=== PATIENT | female | born 1955 | race Caucasian/White ===

== ENCOUNTER 2021-03-08 10:48 | Emergency (ER) | payer MEDICARE, SELFPAY ==
[2021-03-08 10:57] VITALS: BP 106/57; PULSE 54; RESP 17; O2SAT 93; BMI 28.6
--- NOTE | 2021-03-08 11:10 | W.ED.GIBLEED ---
HPI - GI Bleed General: Chief complaint: GI Bleed Stated complaint: UPPER GI BLEED, SYNCOPAL EPISODE Time Seen by Provider: 03/08/21 10:56 History of Present Illness: HPI Narrative: Patient comes in after experiencing a syncopal episode and 2 episodes of vomiting blood. States that 3 days ago she had an upper GI scope with biopsies and polyp removal. States that she was started back on her blood thinner 2 days ago. She denies any abdominal pain, continued vomiting, nausea, fever. Associated symptoms: Reports nausea and vomiting; Denies abdominal pain, fever(s), headache(s) or rash Review of Systems Const: Denies: fever(s) or body aches Eyes: Denies: change in vision or blurry vision ENMT: Denies: throat pain or odynophagia Card: Denies: chest pain or palpitations Resp: Denies: dyspnea or productive cough GI: Reports: nausea, vomiting and hematemesis; Denies: abdominal pain : Denies: flank pain or dysuria Musc: Denies: neck pain or back pain Skin/Breast: Denies: rash or pruritus Neuro: Denies: headache(s) or numbness in extremities Psych: Denies: anxiety or change in appetite Endo: Denies: polyuria or excessive sweating Physical Exam Const: COMMON NORMALS: no acute distress, patient oriented x3, healthy appearing and alert HENMT: COMMON NORMALS: normocephalic and atraumatic HEAD & SCALP: normocephalic and atraumatic Eye: COMMON NORMALS: Equal, round and reactive pupils present and EOMs intact bilaterally PUPIL: Yes Equal, round and reactive pupils present Neck/C-Spine: COMMON NORMALS: full ROM and supple Resp: COMMON NORMALS: normal respiratory effort, No retractions and No use of accessory muscles Cardio: COMMON NORMALS: regular rate and regular rhythm RATE: regular rate RHYTHM: regular rhythm GI: COMMON NORMALS: Normal to inspection, nondistended, normoactive bowel sounds present, Soft to palpation and non-tender PALPATION: Yes Soft to palpation Back/Pelvis: COMMON NORMALS: thoracic and lumbar spine normal to inspection and no thoracic nor lumbar tenderness Extremity: COMMON NORMALS: normal to inspection and full ROM Neuro: COMMON NORMALS: patient oriented x3 SENSORIUM/ORIENTATION: Yes alert Psych: COMMON NORMALS: mental status grossly normal and cooperative Skin: COMMON NORMALS: no rashes or lesions noted and no wounds GENERAL SKIN EXAM: no rashes or lesions noted Course Vital Signs: Vital signs: Vital Signs Pulse Rate 57 L 03/08/21 13:02 Respiratory Rate 16 03/08/21 11:30 Blood Pressure 101/56 03/08/21 13:02 Pulse Oximetry 97 03/08/21 13:02 MDM - GI Bleed MDM Narrative: Medical decision making narrative: Patient comes in after a syncopal episode and 2 episodes of hematemesis. States that she had an upper GI scope 3 days ago with polyp removal. Was started back on her blood thinner the next day. She denies any chest pain, shortness of breath, fever, abdominal pain. On physical exam her abdomen is soft, nontender. She is not feeling nauseated at this time per the patient. Will check labs, EKG, and reassess. On reassessment I talked to the patient about the test results. Her repeat hemoglobin was almost 3 points lower than the initial. We will start Protonix bolus and drip, give Andexxa to reverse her Eliquis. I discussed the case with GI and the hospitalist at [facility] in [facility], and they have accepted the patient in transfer. Lab Data: Labs: Lab Results 03/08/21 03/08/21 03/08/21 10:36 10:36 14:23 WBC 13.7 10^3/uL H 10 ^3/uL 10.1 10^3/uL H 10 ^3/uL (4.0-10.0) (4.0-10.0) RBC 3.57 10^6/uL L 10 ^6/uL 2.74 10^6/uL L 10 ^6/uL (4.1-5.3) (4.1-5.3) Hgb 11.3 g/dL L g/dL 8.6 g/dL L g/dL (11.5-15.3) (11.5-15.3) Hct 34.1 % L % 26.0 % L % (37.0-47.0) (37.0-47.0) MCV 95.5 fl fl 94.9 fl fl (81-99) (81-99) MCH 31.7 pg pg 31.4 pg pg (28.0-34.0) (28.0-34.0) MCHC 33.1 g/dL g/dL 33.1 g/dL g/dL (30.0-36.0) (30.0-36.0) RDW 13.2 % % 13.3 % % (12.1-15.1) (12.1-15.1) Plt Count 318 10^3/cmm 10^3 /cmm 202 10^3/cmm D 1 0^3/cmm (130-400) (130-400) MPV 9.8 fL fL 9.9 fL fL (7.4-10.4) (7.4-10.4) Neut % (Auto) 55.5 % % 88.1 % % Lymph % (Auto) 36.5 % % 8.5 % % [place] % (Auto) 6.1 % % 2.8 % % Eos % (Auto) 1.1 % % 0.0 % % Baso % (Auto) 0.4 % % 0.2 % % Neut # (Auto) 7.58 10^3/uL 10^3 /uL 8.91 10^3/uL H 10 ^3/uL (1.8-7.7) (1.8-7.7) Lymph # (Auto) 5.0 10^3/uL H 10^ 3/uL 0.9 10^3/uL 10^3/ uL (0.8-4.8) (0.8-4.8) [place] # (Auto) 0.8 10^3/uL 10^3/ uL 0.3 10^3/uL 10^3/ uL (0.2-0.9) (0.2-0.9) Eos # (Auto) 0.2 10^3/uL 10^3/ uL 0.0 10^3/uL 10^3/ uL (0.0-0.8) (0.0-0.8) Baso # (Auto) 0.1 10^3/uL 10^3/ uL 0.0 10^3/uL 10^3/ uL (0.0-0.1) (0.0-0.1) Nucleated RBC % (a uto) 0 % % 0 % % Nucleated RBCs # 0.0 /100WBC /100W BC 0.0 /100WBC /100W BC Sodium 143 mmol/L mmol/L (136-145) Potassium 3.7 mmol/L mmol/L (3.5-5.1) Chloride 104 mmol/L mmol/L (98-107) Carbon Dioxide 20 mmol/L L mmol/ L (22-29) Anion Gap 22.7 H (5-19) BUN 29 mg/dL H mg/dL (8-23) Creatinine 0.9 mg/dL mg/dL (0.5-0.9) GFR Calculation 62.5 mL/min L mL/ min (90-130) Glucose 111 mg/dL mg/dL (65-115) Calculated Osmolal ity 303 mOsm/kg H mOs m/kg (285-295) Calcium 8.4 mg/dL L mg/dL (8.5-10.5) Total Bilirubin 0.4 mg/dL mg/dL (0.15-1.2) AST 14 U/L U/L (0-32) ALT 12 U/L U/L (0-33) Alkaline Phosphata se 61 IU/L IU/L (35-105) Total Protein 6.3 g/dL L g/dL (6.6-8.7) Albumin 4.2 g/dL g/dL (3.5-5.2) Globulin 2.1 g/dL g/dL (1.3-4.6) Blood Type Rho(D) Type Antibody Screen 03/08/21 14:23 WBC RBC Hgb Hct MCV MCH MCHC RDW Plt Count MPV Neut % (Auto) Lymph % (Auto) [place] % (Auto) Eos % (Auto) Baso % (Auto) Neut # (Auto) Lymph # (Auto) [place] # (Auto) Eos # (Auto) Baso # (Auto) Nucleated RBC % (a uto) Nucleated RBCs # Sodium Potassium Chloride Carbon Dioxide Anion Gap BUN Creatinine GFR Calculation Glucose Calculated Osmolal ity Calcium Total Bilirubin AST ALT Alkaline Phosphata se Total Protein Albumin Globulin Blood Type O Positive Rho(D) Type Positive Antibody Screen Negative Critical Care Time Critical Care Time: Critical Care Time: Yes Total Critical Care Time: 35 Attestation: With a three-point drop in the patient's hemoglobin we we will type and screen for potential transfusion if the bleeding continues, critical care time included IV fluid resuscitation, ANDEXA administration to reverse Eliquis for upper GI hemorrhage, review of chart, discussion with consultants, monitoring of cardiac output measures, Discharge Plan Discharge Patient Disposition: Xfer Short-Term Hosp Clinical Impression: Upper gastrointestinal hemorrhage Condition: Stable Discharge Orders: Transfer Out of Facility (Order); Ordered 03/08/21 Ordered By: Mateo Rand Coding Level of Care Code ED Chain Forming Machine Operator for Chg Fwd Exam Comprehensive
--- NOTE | 2021-03-08 11:13 | ECG_ITS ---
[facility] Test Date: 2021-03-08 Pat Name: Amy Momin Department: Room: Gender: Female Wire Machine Operator: : [id number] Requested By: Mateo Rand Order Number: [id number] Reading MD: LIDIA RODNEY Measurements Intervals [place] Rate: 52 P: 61 NC: 156 QRS: 50 QRSD: 86 T: 57 QT: 485 QTc: 455 Interpretive Statements SINUS BRADYCARDIA NONSPECIFIC ST & T-WAVE ABNORMALITY No previous ECG available for comparison Electronically Signed On 03-09-2021 18:16:52 GASOLINE LOCOMOTIVE CRANE OPERATOR by LIDIA RODNEY [email or web address]
[2021-03-08 11:17] LABS: Basophils # 0.1 10^3/uL (0.0-0.1); Basophils % 0.4 %; Eosinophils # 0.2 10^3/uL (0.0-0.8); Eosinophils % 1.1 %; Hematocrit 34.1 % (37.0-47.0); Hemoglobin 11.3 g/dL (11.5-15.3); Lymphocytes % 36.5 %; Mean Corpuscular HGB Conc 33.1 g/dL (30.0-36.0); Mean Corpuscular Hemoglobin 31.7 pg (28.0-34.0); Mean Corpuscular Volume 95.5 fl (81-99); Mean Platelet Volume 9.8 fL (7.4-10.4); Monocytes # 0.8 10^3/uL (0.2-0.9); Monocytes % 6.1 %; Neutrophils # 7.58 10^3/uL (1.8-7.7); Neutrophils % 55.5 %; Nucleated Red Blood Cells % 0 %; Platelet Count 318 10^3/cmm (130-400); Red Blood Count 3.57 10^6/uL (4.1-5.3); Red Cell Distribution Width 13.2 % (12.1-15.1); White Blood Count 13.7 10^3/uL (4.0-10.0)
[2021-03-08 11:30] VITALS: BP 106/57; PULSE 52; RESP 16; O2SAT 93
[2021-03-08 11:34] LABS: Alanine Aminotransferase 12 U/L (0-33); Albumin Level 4.2 g/dL (3.5-5.2); Alkaline Phosphatase 61 IU/L (35-105); Anion Gap 22.7 (5-19); Aspartate Amino Transferase 14 U/L (0-32); Blood Urea Nitrogen 29 mg/dL (8-23); Calcium 8.4 mg/dL (8.5-10.5); Carbon Dioxide 20 mmol/L (22-29); Chloride 104 mmol/L (98-107); Creatinine Clr Calc Pharmacy 60.4413; Globulin 2.1 g/dL (1.3-4.6); Glomerular Filtration Rate 62.5 mL/min (90-130); Glucose 111 mg/dL (65-115); Osmolality Calculated 303 mOsm/kg (285-295); Potassium 3.7 mmol/L (3.5-5.1); Sodium 143 mmol/L (136-145); Total Bilirubin 0.4 mg/dL (0.15-1.2); Total Protein 6.3 g/dL (6.6-8.7)
[2021-03-08] MEDS: sodium chloride 0.9% 1,000 ML 999 ML IV ×2 (11:35→13:05)
[2021-03-08 12:03] VITALS: BP 97/53; PULSE 62; O2SAT 96
--- NOTE | 2021-03-08 12:56 | PC.PHAR ---
PT STATES SHE TAKES CARE OF HER OWN MEDICATIONS-PT STATES SHE TAKES THE MEDICATIONS ENTERED PT STATES SHE HAD A BUILD UP OF SOME OF HER MEDICATIONS AND HASNT HAD THEM FILLED RECENTLY BUT IS STILL TAKING-PT STATES THE DR ESCOBEDO HER LASIX 20MG DAILY FILLED ON 02/14/21 30D/S PT STATES DR ESCOBEDO A WEEK AGO-NOTES ARE MADE IN THE PHARMACY COMMENTS
[2021-03-08 13:02] VITALS: BP 101/56; PULSE 57; O2SAT 97
[2021-03-08] MEDS: ondansetron 2 mg/ML SDV 2 mL 4 MG IVP (13:23)
[2021-03-08 14:34] LABS: Basophils % 0.2 %; Hemoglobin 8.6 g/dL (11.5-15.3); Lymphocytes # 0.9 10^3/uL (0.8-4.8); Lymphocytes % 8.5 %; Mean Corpuscular HGB Conc 33.1 g/dL (30.0-36.0); Mean Corpuscular Hemoglobin 31.4 pg (28.0-34.0); Mean Corpuscular Volume 94.9 fl (81-99); Mean Platelet Volume 9.9 fL (7.4-10.4); Monocytes # 0.3 10^3/uL (0.2-0.9); Monocytes % 2.8 %; Neutrophils # 8.91 10^3/uL (1.8-7.7); Neutrophils % 88.1 %; Nucleated Red Blood Cells % 0 %; Platelet Count 202 10^3/cmm (130-400); Red Blood Count 2.74 10^6/uL (4.1-5.3); Red Cell Distribution Width 13.3 % (12.1-15.1); White Blood Count 10.1 10^3/uL (4.0-10.0)
[2021-03-08] MEDS: factor xa, inactivated-zhzo 400 MG in empty flexible container 1 EACH, non-DEHP filter ... 171.43 MG IV (16:54)
[2021-03-08] MEDS: factor xa, inactivated-zhzo 480 MG in empty flexible container 1 EACH, non-DEHP filter ... 24 MG IV (17:31)
[2021-03-08 19:01] VITALS: BP 112/61; PULSE 75; RESP 19; O2SAT 94
== END 2021-03-08 19:04 | disposition short-term general hospital (02) ==
PROVIDERS: Emergency Provider Emergency Medicine
DX: K92.2 Gastrointestinal hemorrhage, unspecified (principal)
CPT/HCPCS: 80053; 85025; 86850; 86900; 93005; 99285; J2405; J7030; J7169